=== PATIENT | male | born 1935 | race Caucasian/White ===

== ENCOUNTER → 2021-09-30 | Outpatient (CLI) | payer MEDICARE, BC ==
[~2021-09-30] MED LIST: ASPI81CH PO; CEPH500 PO; CIPR500 PO; Citrate Of Mag300 ML PO; DOCU100 PO; DOXA4; DOXA4 PO; DUTA.5 PO; HYDACE5 PO; Kristalose20 GM PO; LISHYD1012 PO; LIVALO4 MG PO; METO50ER PO; NAPR550 PO; OXYACE5T PO; PHENA100 PO; SULTRIDS PO; UROXATRAL
[2021-09-30 10:46] LABS: Source, Urine Clean Catch
[2021-09-30 12:19] LABS: Bilirubin, Urine Neg (Neg); Glucose Qualitative, Urine Neg (Neg); Ketones, Urine Neg (Neg); Leukocyte Esterase, Urine 1+ (Neg); Nitrite, Urine Neg (Neg); Urobilinogen, Urine NORM (Normal)
[2021-09-30 12:25] LABS: Appearance, Urine Clear (Clear); Color, Urine Yellow (P-Yellow)
[2021-09-30 12:32] LABS: Blood, Urine 5+ (Neg)
[2021-09-30 12:33] LABS: Bacteria Few /hpf; Protein, Urine 3+ (Neg); Red Blood Cells, Urine 50-100 /hpf (0-2)
[2021-09-30 12:35] LABS: Squamous Epithelial Cells Rare /hpf (Few); Yeast/Fungi Urine Few /hpf
== END ==
LOC: LAB SHORT 10:43
PROVIDERS: Radiology Therapeutic Radiology
DX: C61 Malignant neoplasm of prostate (principal); E78.5 Hyperlipidemia, unspecified; N52.9 Male erectile dysfunction, unspecified; H90.2 Conductive hearing loss, unspecified
CPT/HCPCS: 81001; 87086

== ENCOUNTER 2021-11-23 15:35 | Emergency (ER) | payer MEDICARE, BC ==
[~2021-11-23] VITALS: Ht 177.8 cm; Wt 77.1 kg
[2021-11-23 16:40] LABS: Influenza A, PCR NEGATIVE (NEGATIVE); Influenza B, PCR NEGATIVE (NEGATIVE); Resp Syncytial Virus, PCR NEGATIVE (NEGATIVE); SARS-Cov-2 (COVID-19) PCR, MMC NEGATIVE (NEGATIVE)
== END 2021-11-23 17:22 | disposition home or self-care (01) ==
LOC: ER 15:35
PROVIDERS: Physician Assistant
DX: Z20.822 Contact with and (suspected) exposure to COVID-19 (principal); I10 Essential (primary) hypertension; Z79.899 Other long term (current) drug therapy; Z87.891 Personal history of nicotine dependence
CPT/HCPCS: 0241U; 99281